=== PATIENT | female | born 1970 | race Caucasian/White ===

== ENCOUNTER 2023-12-05 19:51 | Outpatient (CLI) | payer MEDICAID, OTHER | END 2023-12-05 23:59 | disposition critical access hospital (66) | LOC: EMS 19:51 | DX: R56.9 Unspecified convulsions (principal); R51.9 Headache, unspecified; S09.90XA Unspecified injury of head, initial encounter; W18.39XA Other fall on same level, initial encounter; Y93.01 Activity, walking, marching and hiking; Y92.414 Local residential or business street as the place of occurrence of the external cause; R06.81 Apnea, not elsewhere classified; R23.0 Cyanosis | CPT/HCPCS: A0425; A0433 ==

== ENCOUNTER 2023-12-05 20:43 | Emergency (ER) | payer MEDICAID, OTHER ==
--- NOTE | 2023-12-05 20:54 | ED Physician Documentation ---
PD HPI HEAD INJURY - Stated complaint Stated Complaint: SZ, HIT HEAD - History obtained from History obtained from: EMS - Additional information Additional information: 53-year-old woman with reported history of seizure disorder. All history is from EMS as she is intubated. Reportedly said she felt bad and then had a seizure. She fell and hit the back of her head and EMS arrived and found her to be talking but altered reportedly with GCS "less than 13." Unclear what her GCS actually was. Blood sugar and vitals were unremarkable. On the way here she had multiple seizures and was intubated. She is having blood coming from the left ear. Unclear what seizure medication she takes routinely. PD PAST MEDICAL HISTORY - Past Medical History Past Medical History: Yes Neuro: Seizure disorder - Allergies Allergies/Adverse Reactions: Allergies Allergy/AdvReac Type Severity Reaction Status Date / Time Unable to Assess Allergy Verified 12/05/23 21:16 PD ED PE NORMAL - Vitals Vital signs reviewed: Yes - General General: Other (intubated GCS 3) - HEENT HEENT: Other (blood from left ear; pinpoint pupils) - Neck Neck: Other (placed in c-collar on arrival) - Cardiac Cardiac: RRR, No murmur - Respiratory Respiratory: Other (rhonchorous bilater, not breathing over vent) - Abdomen Abdomen: Non tender - Neuro Eye Opening: None Motor: None Verbal: None GCS Score: 3 Results - Vitals Vitals: Vital Signs - 24 hr 12/05/23 12/05/23 20:53 21:15 Heart Rate 97 99 Respiratory 16 16 Rate Blood Pressure 102/57 L 150/88 H O2 Saturation 99 100 If not protocol 15 : Oxygen Flow, liters/minute Oxygen O2 Source Ambu bag - Labs Labs: Laboratory Tests 12/05/23 12/05/23 12/05/23 20:55 20:55 20:55 WBC 5.9 RBC 4.71 Hgb 13.1 Hct 42.4 MCV 90.0 MCH 27.8 MCHC 30.9 L RDW 13.4 Plt Count 348 MPV 9.6 Neut # (Auto) 3.2 Lymph # (Auto) 2.1 [place] # (Auto) 0.4 Eos # (Auto) 0.1 Baso # (Auto) 0.1 Absolute Nucleated RBC 0.00 Nucleated RBC % 0.0 PT 12.2 INR 1.1 APTT 28.4 Sodium 141 Potassium 3.4 L Chloride 103 Carbon Dioxide 25 Anion Gap 13.0 BUN 20 Creatinine 0.8 Estimated GFR (MDRD) 75 L Glucose 126 H Calcium 9.5 Total Bilirubin 0.9 AST 16 ALT 11 Alkaline Phosphatase 102 Total Protein 6.9 Albumin 4.1 Globulin 2.8 Albumin/Globulin Ratio 1.5 Lipase 40 Ethyl Alcohol < 10.0 PD Medical Decision Making - ED course ED course: 53-year-old woman either had a seizure and then fell and hit the back of her head or fell and hit the back of her head and has a seizure. She does have a history of seizure disorder, unclear what antiepileptics if any she is taking. She has blood coming from the left ear and had multiple seizures on the way here and on the way here was medicated with etomidate, rocuronium, 10 mg of Versed and some fentanyl. On arrival she is intubated and sedated. She was not in a c-collar and this was placed on arrival to the emergency department. She was evaluated and taken over for joyner scan, during that time I called [facility] as she would obviously need transfer to a higher level of care/trauma center and she was graciously accepted by Dr. Longo at approximately 9:04 PM. We agreed to start a propofol drip and having 1 g of Keppra IV and I will call them back with any pertinent positive findings regarding trauma on my "wet read" of my CT scans. On my "wet read" of her joyner scan imaging I see no evidence of severe intracranial injury i.e. no intracranial hemorrhage. She does look like she probably aspirated to the right lung although it is not too bad and she has a fat-containing umbilical hernia. - Critical Care Time(min): 35 Time Includes: Direct patient care, Review records, Reassess patient, Document care, Coordinate care, Medical consult Data interpretation: Labs, Pulse ox Procedures included in critical care time: Peripheral IV Departure - Departure Disposition: 02 Transfer Acute Care Hosp Clinical Impression: Seizure Head injury Qualifiers: Encounter type: initial encounter Qualified Code(s): S09.90XA - Unspecified injury of head, initial encounter Respiratory failure Qualifiers: Chronicity: acute Respiratory failure complication: unspecified whether with hypoxia or hypercapnia Qualified Code(s): J96.00 - Acute respiratory failure, unspecified whether with hypoxia or hypercapnia Condition: Critical
[2023-12-05 21:01] LABS: BASOPHILS # (AUTO) 0.1 10^3/uL (0.0-0.1); BASOPHILS % (AUTO) 0.8 %; EOSINOPHILS # (AUTO) 0.1 10^3/uL (0.0-0.7); EOSINOPHILS % (AUTO) 1.7 %; HCT - HEMATOCRIT 42.4 % (37.0-47.0); HGB - HEMOGLOBIN 13.1 g/dL (12.0-16.0); LYMPHOCYTES # (AUTO) 2.1 10^3/uL (1.5-3.5); MEAN CORPUSCULAR HEMOGLOBIN 27.8 pg (27.0-31.0); MEAN CORPUSCULAR HGB CONC 30.9 g/dL (32.0-36.0); MEAN PLATELET VOLUME 9.6 fL (7.9-10.8); MONOCYTES # (AUTO) 0.4 10^3/uL (0.0-1.0); MONOCYTES % (AUTO) 7.4 %; NEUTROPHILS # (AUTO) 3.2 10^3/uL (1.5-6.6); NEUTROPHILS % (AUTO) 54.9 %; PLT - PLATELET COUNT 348 10^3/uL (130-450); RED BLOOD COUNT 4.71 10^6/uL (4.20-5.40); RED CELL DISTRIBUTION WIDTH 13.4 % (12.0-15.0); WHITE BLOOD COUNT 5.9 x10^3/uL (4.8-10.8)
[2023-12-05] MEDS ORDERED: levETIRAcetam 500 MG/5 ML VIAL IVP STA (21:04)
[2023-12-05 21:14] LABS: ALBUMIN 4.1 g/dL (3.2-5.5); ALBUMIN/GLOBULIN RATIO 1.5 (1.0-2.2); ALKALINE PHOSPHATASE 102 IU/L (42-121); ALT ALANINE AMINOTRANSFERASE 11 IU/L (10-60); AST ASPARTATE AMINOTRANSFERASE 16 IU/L (10-42); BILIRUBIN,TOTAL 0.9 mg/dL (0.2-1.0); BUN - BLOOD UREA NITROGEN 20 mg/dL (6-20); CALCIUM 9.5 mg/dL (8.5-10.3); CARBON DIOXIDE - CO2 25 mmol/L (21-32); CHLORIDE 103 mmol/L (101-111); CREATININE 0.8 mg/dL (0.6-1.3); ETOH - ETHANOL < 10.0 mg/dL; GFR - MDRD 75 (>89); GLUCOSE 126 mg/dL (74-104); LIPASE 40 U/L (11-82); POTASSIUM 3.4 mmol/L (3.5-4.5); SODIUM 141 mmol/L (135-145); TOTAL PROTEIN 6.9 g/dL (6.4-8.9)
[2023-12-05 21:17] LABS: PARTIAL THROMBOPLASTIN TIME 28.4 secs (24.9-33.3)
[2023-12-05 21:22] LABS: INR 1.1 (0.8-1.2); PT - PROTHROMBIN TIME 12.2 secs (9.9-12.6)
[2023-12-05] MEDS: PROPOFOL 1000 MG/100 ML 1,000 MG/100 ML BOTTLE IV STA (21:22)
[2023-12-05] MEDS: levETIRAcetam INJ 1,000 MG in SODIUM CHLORIDE 0.9% 100ML 100 ML IV ONE (21:24)
[2023-12-05 21:25] VITALS: BP 150/88; O2SAT 100
[2023-12-05] MEDS: SODIUM CHLORIDE 0.9% 1,000 ML IV STA (21:35)
[2023-12-05] MEDS ORDERED: iohexoL-300 100 ML VIAL ONE (21:40)
[2023-12-05] MEDS: iohexoL-300 100 ML VIAL IVP ONE (21:41)
--- NOTE | 2023-12-05 22:08 | CT Report ---
PROCEDURE: Head WO INDICATIONS: Head trauma, abnormal mental status TECHNIQUE: Noncontrast 4.5 mm thick angled axial sections acquired from the foramen magnum to the vertex. For r adiation dose reduction, the following was used: automated exposure control, adjustment of mA and/or kV according to patient size. COMPARISON: None. FINDINGS: Image quality: Excellent. CSF spaces: Basal cisterns are patent. No subdural or epidural hematoma. Ventricles are normal in si ze and shape. Trace hyperdensity is seen along the right frontal convexity that is suspicious for tr chris subarachnoid blood products. Brain: No midline shift. No intraparenchymal hemorrhage. Shen-white matter interface is normal. Skull and face: Nondisplaced fracture is seen at the mastoid portion of the left temporal bone. No in volvement of the carotid canal is seen. No adjacent epidural or subdural hematoma is seen. Small left temporoparietal scalp hematoma. Calvarium and visualized facial bones are intact, without suspicious lesions. The endotracheal tube is partially imaged. Sinuses: There is opacification of the left mastoid air cells. Right mastoid air cells are clear. Muc ous retention cyst in the left sphenoid sinus. The remaining visualized paranasal sinuses are clear. IMPRESSION: 1.Nondisplaced fracture of the mastoid portion of the left temporal bone with small overlying scalp h ematoma. No adjacent extra-axial hematoma is seen. 2.Suspected trace convexity subarachnoid hemorrhage along the right frontal convexity. Findings were discussed with the referring physician, Dr. Gomez, by telephone on 12/05/2023 at 10:0 6 PM. Reviewed by: Adi Muller MD on 12/05/2023 10:06 PM PDT Approved by: Adi Muller MD on 12/05/2023 10:06 PM PDT Station ID: [id number]
--- NOTE | 2023-12-05 22:10 | CT Report ---
PROCEDURE: Cervical Spine WO INDICATIONS: Neck trauma, midline tenderness TECHNIQUE: Noncontrast 3 mm thick sections acquired from the skull base to the T4 level. Sagittal and coronal r eformats were then constructed. For radiation dose reduction, the following was used: automated exp osure control, adjustment of mA and/or kV according to patient size. COMPARISON: None. FINDINGS: Image quality: Excellent. Bones: No acute cervical spine fractures or dislocations. Visualized superior ribs are intact. Mil d multilevel spondylosis. Nondisplaced temporal bone fracture is partially included. Soft tissues: Prevertebral soft tissues are normal in thickness. No paravertebral hematomas. No ap ical pneumothoraces. Endotracheal tube is noted. IMPRESSION: 1.No acute, displaced cervical spine fracture or traumatic subluxation. 2.Nondisplaced left temporal bone fracture is partially included. Reviewed by: Adi Muller MD on 12/05/2023 10:09 PM PDT Approved by: Adi Muller MD on 12/05/2023 10:09 PM PDT Station ID: [id number]
--- NOTE | 2023-12-05 22:17 | CT Report ---
PROCEDURE: Chest W INDICATIONS: Chest trauma, blunt, low energy CONTRAST: 100 ML OMNI 300 TECHNIQUE: After the administration of intravenous contrast, a CT scan of the chest was performed. Images were recorded and evaluated at appropriate window settings. Reformats: axial MIP of the chest, coronal and sagittal. For radiation dose reduction, the following was used: automated exposure control, adjustme nt of mA and/or kV according to patient size. COMPARISON: None. FINDINGS: Image quality: Diagnostic. Chest wall and lower neck: No thyroid nodule which requires sonographic follow up. No axillary or sup raclavicular adenopathy by size. Lungs and pleura: Patchy consolidations are seen at the right lung base. Dependent atelectasis versus peripheral consolidation at the left lung base. No pleural effusions. No pneumothorax. No suspiciou s pulmonary nodules which require follow up. Endotracheal tube in satisfactory position. Mediastinum: Heart size is normal. No pericardial effusion. No large vessel abnormality. No mediastin al adenopathy by size criteria. Bones: No aggressive osseous abnormality. Nondisplaced rib fracture is seen. Thoracic vertebral jose david s are intact. Upper Abdomen: Please see the separate report from the CT of the abdomen and pelvis performed at the same time. IMPRESSION: 1.Right greater than left basilar opacities are suspicious for aspiration versus less likely contusio ns. 2. No acute osseous fracture. Reviewed by: Adi Muller MD on 12/05/2023 10:16 PM PDT Approved by: Adi Muller MD on 12/05/2023 10:16 PM PDT Station ID: [id number]
--- NOTE | 2023-12-05 22:19 | CT Report ---
PROCEDURE: Abdomen/Pelvis W INDICATIONS: Abdominal trauma, blunt CONTRAST: 100 ML OMNI 300 TECHNIQUE: After the administration of intravenous contrast, a CT scan of the abdomen and pelvis was performed. Images were recorded and evaluated at appropriate window settings. Reformats: coronal and sagittal. F or radiation dose reduction, the following was used: automated exposure control, adjustment of mA and /or kV according to patient size. COMPARISON: None. FINDINGS: Image quality: Diagnostic. Lower chest: Please see the separate report from the chest CT performed at the same time. Liver: No solid mass. Gallbladder and biliary tree: Surgically absent. No biliary dilation, accounting for post-cholecystec elana state. Spleen: No splenomegaly. Pancreas: No pancreatic ductal dilation. Adrenals: No adrenal nodule. Kidneys and ureters: No hydronephrosis. No renal cystic lesion which requires follow up. No solid mas s. Stomach, bowel and peritoneum: No bowel distension. No pathologic free fluid. No pneumoperitoneum. Lymph nodes: No central or retroperitoneal adenopathy. Vessels: No infrarenal aortic aneurysm. PELVIS Reproductive organs: Unremarkable. Bladder: No abnormal wall thickening, accounting for underdistention. Pelvic lymph nodes: No pelvic adenopathy by size criteria. Bones: No aggressive osseous abnormality. No acute osseous fracture identified. Other: Moderate fat-containing periumbilical hernia. IMPRESSION: No acute traumatic findings in the abdomen or pelvis. Reviewed by: Adi Muller MD on 12/05/2023 10:18 PM PDT Approved by: Adi Muller MD on 12/05/2023 10:18 PM PDT Station ID: [id number]
--- NOTE | 2023-12-05 22:21 | XRAY Report ---
PROCEDURE: Chest 1V INDICATIONS: resp failure TECHNIQUE: One view of the chest was acquired. COMPARISON: None. FINDINGS: Surgical changes and devices: Endotracheal tube is seen with tip projecting approximately 5 cm above the alysa. Lungs and pleura: Mild right greater than left basilar opacities. No definite pleural effusion or pn eumothorax given suspected supine position. Mediastinum: Mediastinal contours appear normal. Heart size is normal. Bones and chest wall: No suspicious bony lesions. Overlying soft tissues appear unremarkable. IMPRESSION: Endotracheal tube in satisfactory position. Mild bibasilar opacities. Reviewed by: Adi Muller MD on 12/05/2023 10:20 PM PDT Approved by: Adi Muller MD on 12/05/2023 10:20 PM PDT Station ID: [id number]
== END 2023-12-05 21:37 | disposition short-term general hospital (02) ==
LOC: ED 20:43
DX: S09.90XA Unspecified injury of head, initial encounter (principal); J96.00 Acute respiratory failure, unspecified whether with hypoxia or hypercapnia; R56.9 Unspecified convulsions; W19.XXXA Unspecified fall, initial encounter
CPT/HCPCS: 36415; 70450; 71045; 71260; 72125; 74177; 80053; 82077; 83690; 85025; 85610; 85730; 96374; 96375; 99291; Q9967